=== PATIENT | male | born 1955 ===

== ENCOUNTER → 2020-04-19 | Outpatient (CLI) | payer OTHER ==
[~2020-04-19] MED LIST: BACLOFEN20 MG PO; OMEPRA PO; TRAMADOL HCL50 MG PO; VOLTAR PO
== END | disposition home or self-care (01) ==
LOC: LAB 06:00 → ADM 07:30 → CIR.AMB 04-23 07:30 → EDSTATUS 04-23 07:30 → ADM 04-23 07:30 → CIR.AMB 04-23 11:30
PROVIDERS: ATTEND Orthopaedic Surgery Hand Surgery
DX: G56.02 Carpal tunnel syndrome, left upper limb (principal); Z01.810 Encounter for preprocedural cardiovascular examination; Z01.812 Encounter for preprocedural laboratory examination; Z01.811 Encounter for preprocedural respiratory examination; Z20.828 Contact with and (suspected) exposure to other viral communicable diseases; I10 Essential (primary) hypertension; E11.9 Type 2 diabetes mellitus without complications; E78.00 Pure hypercholesterolemia, unspecified; E78.3 Hyperchylomicronemia; D65 Disseminated intravascular coagulation [defibrination syndrome]; D66 Hereditary factor VIII deficiency; N39.0 Urinary tract infection, site not specified